=== PATIENT | female | born 1950 | race Caucasian/White ===

== ENCOUNTER 2018-01-06 18:26 | Emergency (ER) | payer MEDICARE, OTHER, SELFPAY ==
[2018-01-06 18:28] VITALS: BP 147/82; PULSE 59; RESP 16; TEMP 36.4; O2SAT 98; BMI 44.3
--- NOTE | 2018-01-06 19:37 | US_ITS ---
STUDY: VENOUS DOPPLER ULTRASOUND - BILATERAL LOWER EXTREMITIES REASON FOR EXAM: Female, 67 years old. Right leg pain, postoperative TECHNIQUE: Ultrasound evaluation of the deep vein system to include gomez-scale imaging and compression was performed. Gomez-scale imaging and Doppler sonographic evaluation, including duplex spectral analysis and qualitative color flow sonography, was performed. COMPARISON: None. FINDINGS: RIGHT LEG Common Femoral Vein: Normal compression, spontaneity and augmentation. Normal color Doppler. Common Femoral Vein/Greater Saphenous Junction: Normal compression, spontaneity and augmentation. Normal color Doppler. Femoral Proximal: Normal compression, spontaneity and augmentation. Normal color Doppler. Femoral Middle: Normal compression, spontaneity and augmentation. Normal color Doppler. Femoral Distal: Normal compression, spontaneity and augmentation. Normal color Doppler. Popliteal Vein: Normal compression, spontaneity and augmentation. Normal color Doppler. Posterior Tibial Vein: Normal compression, spontaneity and augmentation. Normal color Doppler. Peroneal Vein: No compressibility with internal echoes in the mid calf peroneal vein LEFT LEG Common Femoral Vein: Normal compression, spontaneity and augmentation. Normal color Doppler. Common Femoral Vein/Greater Saphenous Junction: Normal compression, spontaneity and augmentation. Normal color Doppler. Deep Femoral Vein: Normal compression, spontaneity and augmentation. Normal color Doppler. Femoral Proximal: Normal compression, spontaneity and augmentation. Normal color Doppler. Femoral Middle: Normal compression, spontaneity and augmentation. Normal color Doppler. Femoral Distal: Normal compression, spontaneity and augmentation. Normal color Doppler. Popliteal Vein: Normal compression, spontaneity and augmentation. Normal color Doppler. Posterior Tibial Vein: Normal compression, spontaneity and augmentation. Normal color Doppler. Peroneal Vein: Normal compression, spontaneity and augmentation. Normal color Doppler. US/Venous Duplex Imag/Trace Extrem IMPRESSION: Small thrombus within the peroneal vein in the mid calf of the right leg. No evidence of left DVT. Remaining imaged vessels are within normal limits Electronically Signed: Eliu Mcguire DO at 20:31 EDT Tel , Service support ,
--- NOTE | 2018-01-06 20:42 | ED.VISSUMM ---
- ER Visit Summary Date of Service: 01/06/18 Chief Complaint: Concern for DVT History of Present Illness: The patient is a 67 F presenting for evaluation due to concern for a DVT. Patient had surgery of her right leg on 616. Patient reports that today she started notice a lump on her medial right calf. She denies any chest pain. Review of systems otherwise negative. Physical Examination: Lower extremity exam shows clean dry and intact incisions. Patient has normal distal pulses. She does have a palpable soft tissue lump in her medial calf. Test Results: Duplex ultrasound shows calf DVTs, but nothing proximal Emergency Department Course and Treatment: Patient presented secondary to concern for DVT. This was found to be positive for below the knee clots. Patient will be set up with an outpatient ultrasound, was instructed to follow-up with primary care. She has a follow-up appointment tomorrow. Disposition: Discharge Impression: 1. Below the knee DVT on the right This note was generated with myQ[employer] dictation software. It may contain incorrect words, spelling, and punctuation that were not noted in review of the chart prior to signing ED Disposition - Plan for ED Patient: Disposition: Home or Assisted Living Chief Complaint: Lower Extremity Injury Diagnosis: Calf DVT (deep venous thrombosis) Instructions: ED DVT Referrals: Eric Craig MD [Primary Care Provider] - 1 Day
--- NOTE | 2018-01-06 20:46 | ED.DCSUM_ITS ---
- ER Visit Summary Date of Service: 01/06/18 Chief Complaint: Concern for DVT History of Present Illness: The patient is a 67 F presenting for evaluation due to concern for a DVT. Patient had surgery of her right leg on 616. Patient reports that today she started notice a lump on her medial right calf. She denies any chest pain. Review of systems otherwise negative. Physical Examination: Lower extremity exam shows clean dry and intact incisions. Patient has normal distal pulses. She does have a palpable soft tissue lump in her medial calf. Test Results: Duplex ultrasound shows calf DVTs, but nothing proximal Emergency Department Course and Treatment: Patient presented secondary to concern for DVT. This was found to be positive for below the knee clots. Patient will be set up with an outpatient ultrasound, was instructed to follow- up with primary care. She has a follow-up appointment tomorrow. Disposition: Discharge Impression: 1. Below the knee DVT on the right This note was generated with [employer] dictation software. It may contain incorrect words, spelling, and punctuation that were not noted in review of the chart prior to signing ED Disposition - Plan for ED Patient: Disposition: Home or Assisted Living Chief Complaint: Lower Extremity Injury Diagnosis: Calf DVT (deep venous thrombosis) Instructions: ED DVT Referrals: Eric Craig MD [Primary Care Provider] - 1 Day
[2018-01-06 21:06] VITALS: BP 157/71; PULSE 63; RESP 15; O2SAT 97
== END 2018-01-06 21:06 | disposition home or self-care (01) ==
PROVIDERS: Emergency Provider Emergency Medicine; Family Provider Family Medicine; PCP Family Medicine
DX: I82.4Z1 Acute embolism and thrombosis of unspecified deep veins of right distal lower extremity (principal)
CPT/HCPCS: 93970; 99282

== ENCOUNTER → 2018-01-13 13:27 | Outpatient (CLI) | payer MEDICARE, OTHER, SELFPAY ==
--- NOTE | 2018-01-13 13:40 | VDLE_ITS ---
Reason For Study: F/U RLE DVT RIGHT GSV is normal. CFV is compressible, spontaneous, phasic, competent and demonstrates normal augmentation. FV is compressible, spontaneous, phasic, competent and demonstrates normal augmentation. POP V is compressible, spontaneous, phasic, competent and demonstrates normal augmentation. T/P Trunk is compressible. PTV is compressible. PERV and Gastroc veins are dilated and non- compressible. Procedure Exam performed in department. Interpretation Summary Acute deep vein thrombosis is noted in the right peroneal vein. Acute deep vein thrombosis is noted in the right gastrocnemius vein. The remainder of the right lower extremity deep venous system is patent and compressible. Valvular competence appears intact within the proximal deep venous system on the right . The right greater saphenous vein appears patent and compressible segmentally. Ordering Physician: Brian Carlos Referring Physician: Eric Craig Performed By: Tati Aggarwal RVT
== END ==
PROVIDERS: Family Provider Family Medicine; PCP Family Medicine; Visit Provider Emergency Medicine
DX: R60.0 Localized edema (principal)
CPT/HCPCS: 93971

== ENCOUNTER 2018-07-08 14:30 | Outpatient (RCR) | payer MEDICARE, OTHER, SELFPAY ==
--- NOTE | 2018-03-24 09:29 | HP.PTEVAL_ITS ---
Patient's Visit Information GUERO DEAN is a 67 year old F referred to Physical Therapy by Eric Craig with a diagnosis of closed fracture of femur. Date of Evaluation: 03/21/18 Physical Therapist: Fletcher Belcher - Visit Plan Frequency: 2x /Week Duration: 6 Weeks Plan: progress strength and range of motion as tolerated. incorperating functional movements and progression away from AD as tolerated. - Subjective Subjective: pt reports to physical therapy following closed fracture of right femur. pt fell in November while descending basement stairs at home and fractured their distal femur. pt has surgery to repair fracture but suffered complications forcing a second surgery. on this date, pt reported to PT with the use of a walking. pt is beginning to transition into the use of a quad cane but primarliy uses the walker. [facility], pt has lived in garage apartment due to inabilty to ascend stairs. in home, pt has ~10 stairs with single handrail leading to the second floor where pt's bedroom is. prior to injury, pt reports being active. 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 - Pain Right Knee Pain Intensity (Out of 10): 2 Pain Intensity Range: 1, 4 - Objective Posture: pt. has general flexed posture, normal LUDA and proper knee positioning. She has slight wt. shift to L side. Palpation: Pt. has normal healing incision. Pt. has mild pain with palpation of distal femur. NEURO: normal all intact. ROM: LLE: knee flexion- AROM 135deg; hip flexion- AROM 95deg; RLE: knee flexion- AROM 95deg, PROM 110deg; hip flexion- AROM 65deg. MMT: LLE: hip: flexion- 3+/5, extension 5/5; knee: flexion- 4+/5, extension- 3+/5; ankle: DF- 5/5; RLE: hip: flexion- 4+/5, extension- 5/5; knee: flexion- 5/5, extension- 4+/5; ankle: DF- 5/5. GAIT: in walking, slow cadance. with quad cane, three point gait with significant left weight shift during stance phase on the right side. without AD, significant decrease in stride length on the left side. STAIRS: PT. is able to negotiate with step to pattern with use of BHR. - Goals Goal 1:: Pt. to have icnreased Increase LLE ROM to equal with RLE Goal Time Frame: 4-6 Weeks Goal 2:: Increase LLE strength by 1/2 grade of all effected musculature allowing for increased stability with all functional mobility. Goal Time Frame: 4-6 Weeks Goal 3:: pt able to ascend and descend stairs reciprically with use of 1 HR allowing for increased ease of access in home. Goal Time Frame: 4-6 Weeks Goal 4:: Pt able to move out of garage apartment and return to home. Goal Time Frame: 4-6 Weeks Goal 5:: Pt. to ambulate with cane vs no AD for unlimited distances allowing for increased community mobility. Goal Time Frame: 4-6 Weeks Goal 6:: Pt. to be I with HEP. - Rehabilitation Potential Physical Therapy Diagnosis: pt presents with symptoms associated with closed fracture of femur. symptoms include limited ROM, diminished strength, and altered gait pattern reducing pt's ability to perform normal daily activities (navigate stairs, ambulate freely) and return to home. pt would benefit from physical therapy in order to promote increased strength, ROM, and normal gait pattern. Rehabilitation Potential: Good - Anticipated Interventions Patient/Client Instruction: Educate patient on: Condition, Plan of Care, Risk Factors, Benefits of Fitness Program For the Purpose of:: To decrease pain, To decrease swelling/inflammation, To increase ROM, To improve muscle performance and motor function, To improve ability to perform ADL's, To increase tolerance to activity/condition/position, To improve performance and independence with ADL's, To increase flexibility/ROM, To improve safety with gait, To improve health and function, To foster healthy habits, To improve decision making, To facilitate caregiver knowledge, To improve self management, To prevent re-injury, To improve ability to perform tasks related to life management, To improve tolerance to ADL's Therapeutic Exercise to Include: Strength training, Power training, Endurance training, Balance training, Body mechanics, Postural training, Flexibilty training, Gait and locomotor training, Passive ROM, Active ROM For the Purpose of:: To decrease pain, To decrease swelling/inflammation, To increase ROM, To improve muscle performance and motor function, To increase tolerance to activity/condition/position, To improve ability of physical actions for home/community/work/leisure, To improve gait and locomotor functions, To improve safety with gait, To assume or resume ADL's, To improve safety IF ES: Yes Cryotherapy (ice pack, ice massage): Yes Thermo therapy (hot pack): Yes For the Purpose of:: To decrease pain, To decrease swelling/inflammation, To increase ROM Thank you for the opportunity to evaluate your patient. For Medicare and Medicare HMO plans, please review the plan of care and approve it. It will need to be FAXED BACK to us at [phone] for Medicare purposes. Please let me know if there are questions or concerns regarding this plan of care. Physician Signature: Date:
--- NOTE | 2018-05-04 10:26 | HP.PTREVAL_ITS ---
Eric Craig, It has been my pleasure to treat GUERO DEAN over the last 8 visits for closed fracture of femur. Please see the progress note below for an update on the physical therapy plan of care! Subjective: Pt. reports I am doing a lot better. She attended this date without use of AD. PT. reports some R knee pain at times, especially with stairs. She reports being 75% better overall. Pt. reports being HEP compliant without issues. Objective/Function: GAIT: Pt. ambulate without AD. Pt has increased lateral postural sway. She has TKE bilaterally, but does have decreased B step length. Pt. reports increased soreness with R stance phase, I jsut don't fully trust it yet. STAIRS: Pt negotiates with reciprocal pattern, but uses BHR to complete. Mild increase in soreness with descending. MMT: LLE 5/5 throughout; RLE- ankle 5/5 throughout, knee- ext 4+/5, flexion 4+/5; hip- flexion 4/5, abd 4/5, ext 4 /5. Core strength- fair-. Plan Plan: Pt. has improved with all functional mobility, but would benefit from continued PT to further strengthening her quads, glutes and progress her stability with gait. Add in dynamic balance and R single leg stance activities as tolerated. I believe some of her R knee pain with reduce with quad/glute strength to stabilize. Goals Goal 1:: Pt. to have icnreased Increase LLE ROM to equal with RLE Goal Time Frame: 4-6 Weeks Goal Progress: Goal Met Goal 2:: Increase LLE strength by 1/2 grade of all effected musculature allowing for increased stability with all functional mobility. Goal Time Frame: 4-6 Weeks Goal Progress: Progressing Goal 3:: pt able to ascend and descend stairs reciprically with use of 1 HR allowing for increased ease of access in home. Goal Time Frame: 4-6 Weeks Goal Progress: Progressing Goal 4:: Pt able to move out of garage apartment and return to home. Goal Time Frame: 4-6 Weeks Goal Progress: Goal Met Goal 5:: Pt. to ambulate with cane vs no AD for unlimited distances allowing for increased community mobility. Goal Time Frame: 4-6 Weeks Goal Progress: Progressing Goal 6:: Pt. to be I with HEP. Goal Progress: Goal Met Anticipated Interventions Patient/Client Instruction: Educate patient on: Condition, Plan of Care, Risk Factors, Benefits of Fitness Program For the Purpose of:: To decrease pain, To decrease swelling/inflammation, To increase ROM, To improve muscle performance and motor function, To improve ability to perform ADL's, To increase tolerance to activity/condition/position, To improve performance and independence with ADL's, To increase flexibility/ROM, To improve safety with gait, To improve health and function, To foster healthy habits, To improve decision making, To facilitate caregiver knowledge, To improve self management, To prevent re-injury, To improve ability to perform tasks related to life management, To improve tolerance to ADL's Therapeutic Exercise to Include: Strength training, Power training, Endurance training, Balance training, Body mechanics, Postural training, Flexibilty training, Gait and locomotor training, Passive ROM, Active ROM For the Purpose of:: To decrease pain, To decrease swelling/inflammation, To increase ROM, To improve muscle performance and motor function, To increase tolerance to activity/condition/position, To improve ability of physical actions for home/community/work/leisure, To improve gait and locomotor functions, To improve safety with gait, To assume or resume ADL's, To improve safety IF ES: Yes Cryotherapy (ice pack, ice massage): Yes Thermo therapy (hot pack): Yes For the Purpose of:: To decrease pain, To decrease swelling/inflammation, To increase ROM Please do not hesitate to contact me at [phone] by phone or if you have questions or concerns regarding this new plan of care! Sincerely, Fletcher Belcher
--- NOTE | 2018-05-16 10:01 | HP.PTREVAL ---
Eric Craig, It has been my pleasure to treat GUERO DEAN over the last 12 visits for closed fracture of femur. Please see the progress note below for an update on the physical therapy plan of care! Subjective: Pt. reports I feel like I am getting better.' She reports no new symptoms. Pt. pleased with PT thus far. She saw her physician who would like her to continue with strengthening Objective/Function: ROM: Pt. has improved R knee ROM 0-0-122deg. MMT: RLE- ankle 5/5 throughout; knee- ext 5-/5, flexion 5-/5; hip- flexion 4+/5, abd 4+/5, ext 4/5. GAIT: Pt. is able to ambulate without AD without LOB, but does have contralateral hip drop on L side during R stance phase. Pt. ishaving incerased R lateral knee pain along IT band insertion and following tendon up to TFL. We have been working on increasing glute med strength to reduce TFL over use. Plan Plan: Pt. to contiune with PT for x2 per week for 3-4 weeks with progression of glute med strength, IT band stretching, inhibtions of TFL. Progress higher level functional mobility as able. May use modalities to reduce symptoms. Goals Goal 1:: Pt. to have icnreased Increase LLE ROM to equal with RLE Goal Time Frame: 4-6 Weeks Goal Progress: Goal Met Goal 2:: Increase LLE strength by 1/2 grade of all effected musculature allowing for increased stability with all functional mobility. Goal Time Frame: 4-6 Weeks Goal Progress: Progressing Goal 3:: pt able to ascend and descend stairs reciprically with use of 1 HR allowing for increased ease of access in home. Goal Time Frame: 4-6 Weeks Goal Progress: Progressing Goal 4:: Pt able to move out of garage apartment and return to home. Goal Time Frame: 4-6 Weeks Goal Progress: Goal Met Goal 5:: Pt. to ambulate with cane vs no AD for unlimited distances allowing for increased community mobility. Goal Time Frame: 4-6 Weeks Goal Progress: Progressing Goal 6:: Pt. to be I with HEP. Goal Progress: Goal Met Anticipated Interventions Patient/Client Instruction: Educate patient on: Condition, Plan of Care, Risk Factors, Benefits of Fitness Program For the Purpose of:: To decrease pain, To decrease swelling/inflammation, To increase ROM, To improve muscle performance and motor function, To improve ability to perform ADL's, To increase tolerance to activity/condition/position, To improve performance and independence with ADL's, To increase flexibility/ROM, To improve safety with gait, To improve health and function, To foster healthy habits, To improve decision making, To facilitate caregiver knowledge, To improve self management, To prevent re-injury, To improve ability to perform tasks related to life management, To improve tolerance to ADL's Therapeutic Exercise to Include: Strength training, Power training, Endurance training, Balance training, Body mechanics, Postural training, Flexibilty training, Gait and locomotor training, Passive ROM, Active ROM For the Purpose of:: To decrease pain, To decrease swelling/inflammation, To increase ROM, To improve muscle performance and motor function, To increase tolerance to activity/condition/position, To improve ability of physical actions for home/community/work/leisure, To improve gait and locomotor functions, To improve safety with gait, To assume or resume ADL's, To improve safety IF ES: Yes Cryotherapy (ice pack, ice massage): Yes Thermo therapy (hot pack): Yes For the Purpose of:: To decrease pain, To decrease swelling/inflammation, To increase ROM Please do not hesitate to contact me at [phone] by phone or if you have questions or concerns regarding this new plan of care! Sincerely, Fletcher Belcher
--- NOTE | 2018-09-27 08:19 | HP.PTDCSUM ---
HP - PT D/C Summary It has been my pleasure to treat GUERO DEAN under orders from Eric Craig, for the diagnosis of closed fracture of femur for a total of 23 visit(s). Discharge Date: 07/08/18 Please see the following information for a summary of their discharge status. - Subjective Subjective: Pt. reprots I am actually doing very well. Pt. reports beinb 95% better overall. Pt. is walking without AD with improved gait and is independent with her HEP for strengthening. - Pain Right Knee Pain Intensity (Out of 10): 0 - Overall Improvement % Improvement: 95 - Objective Objective/Function: Pt. is able to ambulate without AD. Pt. is able to neogiate steps without issues. Pt. does have some mildpain at lateral hip, but has deminished. Pt. is able to negotiate steps with increased fluid pattern and reciprocal motion. Pt. has 5-/5 strength throughout B LEs. Pt. is pleased with progress. Pt. had close to full ROM throughout B hips and knees. - Goals Goal 1:: Pt. to have icnreased Increase LLE ROM to equal with RLE Goal Progress: Goal Met Goal 2:: Increase LLE strength by 1/2 grade of all effected musculature allowing for increased stability with all functional mobility. Goal Progress: Goal Met Goal 3:: pt able to ascend and descend stairs reciprically with use of 1 HR allowing for increased ease of access in home. Goal Progress: Goal Met Goal 4:: Pt able to move out of garage apartment and return to home. Goal Progress: Goal Met Goal 5:: Pt. to ambulate with cane vs no AD for unlimited distances allowing for increased community mobility. Goal Progress: Goal Met Goal 6:: Pt. to be I with HEP. Goal Progress: Goal Met - Plan Plan: Pt. to be DC to HEP at this point intime. - D/C Information Discharge Comments: Pt. was treated for her femur fx. Pt. was progressed as expected. Pt. has imrpoved to no longer needing an AD. Pt. has minimal pain at this point in time and has resumed most functional mobility without difficulty. Pt. will be DC to HEP at this point in time. If there are questions or concerns regarding this patient's physical therapy, please feel free to call me at [phone]. Thank you for the referral of this patient. Sincerely, MARICHUY BautistaT
== END 2018-07-08 19:00 | disposition home or self-care (01) ==
LOC: PT 14:30
PROVIDERS: Family Provider Family Medicine; PCP Family Medicine; Visit Provider Family Medicine
DX: S72.91XS Unspecified fracture of right femur, sequela (principal)
CPT/HCPCS: 97110; 97116; 97161; 97530

== ENCOUNTER 2020-06-30 06:26 | Emergency (ER) | payer MEDICARE, OTHER, SELFPAY ==
[2020-06-30 06:26] VITALS: BP 169/80; PULSE 69; RESP 18; TEMP 36.4; O2SAT 96; BMI 45.3
[2020-06-30 06:31] VITALS: BP 169/80; PULSE 66; RESP 16; TEMP 36.4; O2SAT 95
[2020-06-30 06:33] VITALS: O2SAT 96
--- NOTE | 2020-06-30 06:45 | RAD_ITS ---
STUDY: X-RAY CHEST REASON FOR EXAM: Female, 69 years old. SOB, COUGH SINCE 06-20-2020 TECHNIQUE: Single AP portable view of the chest. COMPARISON: None. FINDINGS: The lungs are clear and expanded. There is no demonstrated pleural abnormality. There is moderate cardiac enlargement. Normal mediastinum and timbo. Normal visualized pulmonary arteries. Normal visualized aortic arch and descending thoracic aorta. Normal visualized thoracic spine. Normal visualized ribs, clavicles, and shoulders. There is no demonstrated abnormality of the visualized soft tissue structures of the upper abdomen. RAD/Chest 1 View (Portable) IMPRESSION: No active disease. Electronically Signed: Silvano Holguin MD at 7:59 EST Tel , Service support ,
--- NOTE | 2020-06-30 06:46 | EKG12_ITS ---
Test Reason : SOB Blood Pressure : / mmHG Vent. Rate : 067 BPM Atrial Rate : 067 BPM P-R Int : 152 ms QRS Dur : 094 ms QT Int : 428 ms P-R-T Axes : 043 -17 038 degrees QTc Int : 452 ms Normal sinus rhythm Cannot rule out Anterior infarct , age undetermined Abnormal ECG Confirmed by ADAN LAO, KAMLESH ([id number]), story editor LUCRETIA SALINAS ([id number]) on 07/02/2020 8:56:47 AM Referred By: BB Confirmed By:KAMLESH ARELLANO MD
--- NOTE | 2020-06-30 06:47 | ED.DCSUM_ITS ---
History of Present Illness Chief Complaint: Shortness of Breath Informant: Patient Onset: - - Overnight, 6-7 hours Activity at onset: Light Activity, Sleep - Spine spine Timing: Continuous Quality: Dyspnea on exertion, Orthopnea, Wheezing - Mild at times Current Severity: Mild Maximum Severity: Moderate Worsened by: Exertion, Lying flat Relieved by: Rest Associated Symptoms: Cough, White sputum. Negative for: Fever, Sore throat, Sweats Chest Pain: None Narrative: Patient presenting with dyspnea with light exertion and lying down. She states she had an episode similar to this Arash Joanie, 10 days ago, she did not come to the hospital or seek care. She states since it happened again overnight and she got no sleep because of her dyspnea, she presents for evaluation. She did not have orthopnea/dyspnea since it occurred 10 days ago. Since then she has had a mild productive cough. For the last several weeks she has had sinus congestion and runny nose that drains down the back of her throat off and on. She denies any fevers or chills. Patient presents during the national coronavirus emergency declaration/pandemic. Denies any known contact with anyone infected with COVID-19, and denies having had the illness that she knows of this past year or so. Denies traveling out of the immediate area recently. No history of DVT or PE that she knows of. Takes a baby aspirin daily, no anticoagulants. No known history of heart problems. - Past Medical History (1) Hypertension Status: Chronic (2) Type 2 diabetes mellitus Status: Chronic (3) Hypothyroid Status: Chronic Past Medical History - Allergies and Home Meds Allergies/Adverse Reactions: Allergies bee venom protein (honey bee) Allergy (Verified 01/06/18 18:27) Anaphylaxis Sulfa (Sulfonamide Antibiotics) Allergy (Verified 01/06/18 18:27) Anaphylaxis Primary Care Physician: Eric Craig MD [Primary Care Provider] - Smoking Status: Never smoker Review of Systems General: Denies: Chills, Fever, Sweats Eyes: Denies: Visual changes - bilaterally, Diplopia ENT: Reports: Rhinorrhea. Denies: Bilateral ear pain, Sore throat Cardiovascular: Denies: Chest pain, Palpitations Respiratory: Reports: Dyspnea, Cough, Sputum - Occasional white, nonbloody, Dyspnea on exertion, Orthopnea, Paroxysmal nocturnal dyspnea - Overnight tonight Gastrointestinal: Reports: Diarrhea - Mild off-and-on. Denies: Abdominal pain, Nausea, Vomiting, Melena, Hematochezia Genitourinary: Denies: Dysuria, Hematuria, Frequency Musculoskeletal: Reports: Back pain - Lung pain mid bilateral back. Denies: Myalgias, Neck pain, Swelling, Extremity Pain Skin: Denies: Rash, Wounds Neurological: Denies: Headache, Weakness, Numbness Physical Exam Vital Signs/Narrative: Vital Signs Temp Pulse Resp BP Pulse Ox 06/30/20 06:31 97.6 F L 66 16 169/80 H 95 06/30/20 06:26 97.6 F L 69 18 169/80 H 96 Inital Vital Signs reviewed: Yes General: Well nourished, Well developed, Obese, No Acute Distress Head: Normocephalic, Atraumatic Eyes: Perrl, EOMI ENT: Moist mucous membranes, No rhinorrhea Neck: Supple, Nontender, No lymphadenopathy, No JVD Cardiovascular: Regular rate, Regular rhythm, No murmurs, Normal S1, Normal S2. Negative for: Tachycardia Respiratory: No distress, CTA bilaterally, Chest nontender Abdomen: Soft, Nontender, Nondistended, Normal bowel sounds Back: Nontender, Normal Inspection. Negative for: CVA tenderness Extremities: Nontender, No edema. Negative for: Calf Tenderness Skin: Normal color, No rash, No Trauma Neurological: Alert, Oriented x3, Cranial nerves II-XII grossly intact, Normal Strength, Normal Sensation, Normal Gait Psychological: Normal affect, Normal Mood Diagnostic/Tx/Re-eval Laboratory Tests 06/30/20 06/30/20 06/30/20 Range/Units 06:55 06:55 06:55 WBC 6.3 (4.4-11.0) K/mm3 RBC 4.37 (4.2-5.4) M/mm3 Hgb 13.8 (12.0-15.0) g/dL Hct 41.6 (37-47) % MCV 95.2 (81-99) fL MCH 31.6 (27.0-32.0) pg MCHC 33.2 (32-36) g/dL RDW Std Deviation 43.3 (35.1-43.9) fl RDW Coeff of Velvet 12.3 (11.6-14.6) % Plt Count 164 (150-450) K/mm3 MPV 12.1 H (6.2-12.0) fl Immature Gran % (Auto) 0.500 (0.0-0.9) % Neut % (Auto) 61.1 (47-70) % Lymph % (Auto) 26.7 (19-41) % [place] % (Auto) 7.7 (0-10) % Eos % (Auto) 3.2 (0-5) % Baso % (Auto) 0.8 (0-1) % Absolute Neuts (auto) 3.9 (2.0-7.7) X10^3/uL Absolute Lymphs (auto) 1.69 (0.83-4.51) X10^3/uL Nucleated RBC % 0 (0-5) % Sodium 136 (136-145) mmol/L Potassium 4.1 (3.5-5.1) mmol/L Chloride 101 (98-107) mmol/L Carbon Dioxide 28.0 (21.0-32.0) mmol/L Anion Gap 7 (5-15) BUN 29 H (7-18) mg/dL Creatinine 1.26 H (0.55-1.02) mg/dL Estim Creat Clear Calc 42.51 ml/min Est GFR (MDRD) Af Amer 54 L (>60) mL/min Est GFR (MDRD) Non-Af 45 L (>60) mL/min BUN/Creatinine Ratio 23.0 H (10-20) RATIO Glucose 256 H (74-106) mg/dL Calcium 9.3 (8.5-10.1) mg/dL Troponin I < 0.015 (<0.045) ng/mL B-Natriuretic Peptide 17.7 (0-100) pg/mL - Rhythm Strip Rhythm Strip: Sinus Rhythm Rate: 67 Ectopy: None - EKG Initial EKG Interpretation: Sinus Rhythm, No Acute Injury Pattern, Inverted T-Waves - ant- sept, Non-Specific ST Changes - diffusely Prior: No Prior Treatment - Dyspnea: Albuterol - Medical Decision Making Other than mild renal insufficiency her labs are normal, her EKG shows no acute injury. There are nonspecific T wave abnormalities diffusely and there is nothing to compare to. Her troponin is negative. Her symptoms do not sound acutely cardiac although congestive heart failure within the differential diagnosis, her BNP is very low, essentially ruling out acute decompensated congestive heart failure as cause for these acute symptoms. After an albuterol aerosol, she is feeling much better. I do not think her symptoms are compatible with pulmonary embolus. Her chest x-ray 1 view on my interpretation shows no acute abnormalities and a normal narrow mediastinum/cardiac shadow. Her COVID- 19 rapid antigen test returned negative. She is a diabetic. At this time I feel it is safest to send her home with an albuterol inhaler to use PRN, and to avoid steroids for now. This is only the second time she has been dyspneic like this, and the rest of her symptoms have been very mild. I advised close outpatient follow-up after the weekend and she is comfortable with that plan. ED Disposition - Plan for ED Patient: Disposition: Home or Assisted Living Diagnosis: Acute wheezy bronchitis Instructions: ED Bronchitis with Wheezing (Adult) Prescriptions: Albuterol Inhaler [Ventolin Hfa] 1 - 2 puff INHALATION Q4H PRN PRN #1 inhaler PRN Reason: Wheezing Prescription Printed Referrals: Eric Craig MD [Primary Care Provider] - 3-5 Days
[2020-06-30 07:11] VITALS: PULSE 73; RESP 18
[2020-06-30] MEDS: Albuterol 2.5 MG/3 ML VIAL.NEB. INHALATION (07:11)
[2020-06-30 07:12] LABS: Absolute Lymphocyte Count 1.69 X10^3/uL (0.83-4.51); Absolute Neutrophil Count 3.9 X10^3/uL (2.0-7.7); Basophil# 0.05 X10^3/uL; Basophil% 0.8 % (0-1); Eosinophils% 3.2 % (0-5); Hematocrit 41.6 % (37-47); Hemoglobin 13.8 g/dL (12.0-15.0); Lymphocyte # 1.69 X10^3/ul (4.0); Lymphocyte % 26.7 % (19-41); Mean Corp Hgb Conc 33.2 g/dL (32-36); Mean Corpuscular Hgb 31.6 pg (27.0-32.0); Mean Corpuscular Volume 95.2 fL (81-99); Mean Platelet Vol. 12.1 fl (6.2-12.0); Monocyte# 0.49 X10^3/uL; Monocyte% 7.7 % (0-10); NRBC Flagged by Analyzer 0 % (0-5); Neutrophil # 3.88 X10^3/uL (2.7-7.7); Neutrophil % 61.1 % (47-70); Platelet Count 164 K/mm3 (150-450); RBC Distribution Width CV 12.3 % (11.6-14.6); RBC Distribution Width SD 43.3 fl (35.1-43.9); Red Blood Count 4.37 M/mm3 (4.2-5.4); White Blood Count 6.3 K/mm3 (4.4-11.0)
[2020-06-30 07:19] VITALS: BP 175/99; PULSE 70; RESP 14; O2SAT 94
[2020-06-30 07:29] LABS: Anion Gap 7 (5-15); BUN 29 mg/dL (7-18); Calcium,Total 9.3 mg/dL (8.5-10.1); Chloride 101 mmol/L (98-107); Creatinine, Serum 1.26 mg/dL (0.55-1.02); EST Glomerular Filtration Rate 45 mL/min (>60); Est Glom Filt Rate - Afr Amer 54 mL/min (>60); Estimated Creatinine Clearance 42.51 ml/min; Glucose 256 mg/dL (74-106); Potassium 4.1 mmol/L (3.5-5.1); Sodium Level 136 mmol/L (136-145)
[2020-06-30 07:35] LABS: BNP,B-Type NATRIURETIC PEPTIDE 17.7 pg/mL (0-100)
[2020-06-30 08:05] VITALS: BP 165/69; PULSE 71; RESP 18; O2SAT 95
== END 2020-06-30 08:07 | disposition home or self-care (01) ==
PROVIDERS: Emergency Provider Emergency Medicine; PCP Family Medicine
DX: J20.9 Acute bronchitis, unspecified (principal); E66.9 Obesity, unspecified; I10 Essential (primary) hypertension; E11.9 Type 2 diabetes mellitus without complications; E03.9 Hypothyroidism, unspecified; Z79.82 Long term (current) use of aspirin; Z79.84 Long term (current) use of oral hypoglycemic drugs; Z79.899 Other long term (current) drug therapy
CPT/HCPCS: 71045; 80048; 83880; 84484; 85025; 87426; 93005; 94640; 99284; A4216